=== PATIENT | male | born 1975 | race Caucasian/White ===

== ENCOUNTER → 2023-07-10 | Outpatient (CLI) | payer BC ==
[~2023-07-10] MED LIST: ABILIFY5 MG; ARIP15; ATOM18; CLON.1; DIAZ5; DIVA250EC PO; LAMICTAL200 MG; LAMO25 PO; LITH300C PO; OMEP40CA12; QUET25 PO; RANI150 PO; SERT50; TRAM50
== END ==
LOC: LAB SHORT 15:50 → LAB 15:50
DX: E29.1 Testicular hypofunction (principal)
CPT/HCPCS: 84403

== ENCOUNTER → 2024-04-21 | Outpatient (CLI) | payer BC, OTHER ==
[2024-04-21 16:36] LABS: BASOPHILS ABSOLUTE AUTO 0.03 K/mm3 (0.00-0.23); BASOPHILS PERCENT AUTO 0 % (0-2); EOSINOPHILS ABSOLUTE AUTO 0.12 K/mm3 (0.00-0.68); EOSINOPHILS PERCENT AUTO 2 % (0-6); Hematocrit 45.8 % (37.0-53.0); Hemoglobin 16.7 g/dL (13.5-17.5); IMMATURE GRAN ABSOLUTE AUTO 0.03 K/mm3 (0.00-0.10); IMMATURE GRAN PERCENT AUTO 0 % (0-1); LYMPHOCYTES ABSOLUTE AUTO 1.78 K/mm3 (0.84-5.20); LYMPHOCYTES PERCENT AUTO 22 % (21-46); MONOCYTES ABSOLUTE AUTO 0.55 K/mm3 (0.16-1.47); MONOCYTES PERCENT AUTO 7 % (4-13); Mean Corpuscular HGB 30.2 pg (26.0-34.0); Mean Corpuscular HGB Conc 36.5 g/dL (31.5-36.5); Mean Corpuscular Volume 83 fL (80-100); Mean Platelet Volume 10.1 fL (9.1-12.4); NEUTROPHILS ABSOLUTE AUTO 5.67 K/mm3 (1.96-9.15); NEUTROPHILS PERCENT AUTO 69 % (41-73); Platelet Count 205 K/mm3 (150-400); RDW Coefficient Variation 12.4 % (11.7-14.2); RDW Standard Deviation 37.5 fL (35.1-46.3); Red Blood Cell Count 5.53 M/mm3 (4.30-5.90); White Blood Cell Count 8.18 K/mm3 (4.00-11.30)
[2024-04-21 16:57] LABS: Albumin, Blood 4.4 g/dL (3.4-5.0); Albumin/Globulin Ratio 1.3 (0.8-1.8); Bilirubin, Total 0.8 mg/dL (0.1-1.0); Bun/Creatinine Ratio 9.6 (12.0-20.0); Calcium, Blood 9.4 mg/dL (8.5-10.1); Creatinine, Blood 1.15 mg/dL (0.60-1.20); Globulin, Blood 3.3 g/dL (2.2-4.0); Potassium, Blood 3.7 mmol/L (3.5-5.5); Thyroid Stimulating Hormone 2.3 uIU/mL (0.360-4.800); Total Protein, Blood 7.7 g/dL (6.4-8.2)
[2024-04-22 18:02] LABS: LAMOTRIGINE 6.6 ug/mL (3.0-15.0)
[2024-04-25 06:10] LABS: TESTOSTERONE, TOTAL MASS SPEC 419.2 ng/dL (300.0-890.0)
== END ==
LOC: LAB SHORT 14:48 → LAB 14:48
PROVIDERS: Internal Medicine
DX: E29.1 Testicular hypofunction (principal); F31.81 Bipolar II disorder; T50.905A Adverse effect of unspecified drugs, medicaments and biological substances, initial encounter
CPT/HCPCS: 80053; 80175; 84402; 84403; 84443; 85025

== ENCOUNTER 2024-10-17 15:22 | Observation (INO) | payer BC ==
[~2024-10-17] VITALS: Ht 188 cm; Wt 112.7 kg
[~2024-10-17 15:22] MED LIST changes: -ABILIFY5 MG; +ABILIFY5 MG PO; +BUPR150ER PO; +BUSP10 PO; -LAMICTAL200 MG; +LAMICTAL200 MG PO; +LOSA50 PO
[2024-10-17] MEDS ORDERED: FentaNYL Citrate 50 MCG/ML 2 ML Injection IV ONE (15:35)
[2024-10-17] MEDS ORDERED: NS 1,000 ML IV SCH ×2 (15:35→23:30)
[2024-10-17] MEDS ORDERED: Propofol 10mg/ml 20 ml Vial (Procedural) IV SCH (16:35)
[2024-10-17] MEDS ORDERED: Ketorolac Tromethamine 15mg Vial IV ONE (16:40)
[2024-10-17] MEDS ORDERED: Ondansetron HCl 2 MG / ML 2ML Vial IV PRN (18:00)
[2024-10-17] MEDS ORDERED: Albuterol 2.5 MG/3 ML VIAL INH PRN (18:00)
[2024-10-17] MEDS ORDERED: OxyCODONE 5 mg/Acetamin 325 mg TABLET PO PRN (18:05)
[2024-10-17] MEDS ORDERED: HydrALAZINE HCl 20 MG / ML 1ML Vial IV PRN (18:10)
[2024-10-17] MEDS ORDERED: FentaNYL Citrate 50 MCG/ML 2 ML Injection IV PRN (18:10)
[2024-10-17] MEDS ORDERED: Ketorolac Tromethamine 15mg Vial IV PRN (18:20)
[2024-10-17] MEDS ORDERED: HydrALAZINE HCl 20 MG / ML 1ML Vial IV ONE (19:00)
[2024-10-17 21:50] VITALS: BP 141/86
[2024-10-17] MEDS ORDERED: TRAZ50 PO (22:00)
[2024-10-18] VITALS (18 sets, daily range): BP systolic 106–156; BP diastolic 54–96
[2024-10-18] MEDS ORDERED: Tranexamic Acid 100 ML IV SCH ×3 (06:00→12:05)
[2024-10-18] MEDS ORDERED: CeFAZolin Sodium 2,000 MG in NS 100 ML IV SCH (06:00)
--- NOTE | 2024-10-18 06:34 | NUR ---
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 PT ARRIVED FROM ED WITH A SPLINT IN PLACE, PT REPORTS GOOD SENSATION TO RLE AND ABLE TO WIGGLE TOES AND GOOD CAP REFILL. AAOX4 AND PLEASANT. ABLE TO TURN PIVOT ON L FOOT WITH NO ISSUE. MEDICATED FOR PAIN X2, SEE MAR. PT HAS BEEN NPO SINCE MIDNIGHT IN PREP FOR SURGERY LATER TODAY. VSS, PEPE.
[2024-10-18] MEDS ORDERED: Dexamethasone Sod Phos 10 MG/ML 1ML VIAL ONE ×2 (12:02→16:00)
[2024-10-18] MEDS ORDERED: FentaNYL Citrate 50 MCG/ML 2 ML Injection ONE ×2 (12:03→17:08)
[2024-10-18] MEDS ORDERED: Midazolam HCl 1MG / ML 2ML Vial ONE (12:04)
[2024-10-18] MEDS ORDERED: Ropivacaine 0.5% HCL/PF 5 MG/ML 30ML Vial ONE (12:13)
[2024-10-18] MEDS ORDERED: Ondansetron HCl 2 MG / ML 2ML Vial IV PRN ×2 (12:35→13:55)
[2024-10-18] MEDS ORDERED: FentaNYL Citrate 50 MCG/ML 2 ML Injection IV PRN ×2 (12:35)
[2024-10-18] MEDS ORDERED: Albuterol 2.5 MG/3 ML VIAL INH PRN ×2 (12:35)
[2024-10-18] MEDS ORDERED: CeFAZolin Sodium 2,000 MG VIAL ONE (13:33)
[2024-10-18] MEDS ORDERED: Naloxone HCl 0.4MG / ML 1ML Vial IV PRN (13:50)
[2024-10-18] MEDS ORDERED: Magnesium Hydroxide Conc 10 ML UDC PO PRN (13:50)
[2024-10-18] MEDS ORDERED: HYDROmorphone HCl/Pf 1MG SYR IV PRN (13:55)
[2024-10-18] MEDS ORDERED: Ondansetron HCl 2 MG / ML 2ML Vial ONE (16:00)
--- NOTE | 2024-10-18 17:02 | NUR ---
BLOCK NOTE RIGHT POPLITEAL BLOCK AND R ADDUCTOR CANAL BLOCK PERFORMED PRIOR TO SURGERY. PT O2 SATURATION MONITORED AND STABLE THROUGHOUT PROCEDURE. TIME OUT PERFORMED AT 1441. PT, PROCEDURES, ALLERGIES AND PROVIDERS IDENTIFIED. ADDUCTOR CANAL BLOCK STARTED AT 1445, ENDED AT 1450. POPLITEAL BLOCK STARTED AT 1455, ENDED 1500. VSS. PT TOLERATIED WELL.
[2024-10-18] MEDS ORDERED: Ketorolac Tromethamine 30mg Vial ONE (17:13)
[2024-10-18] MEDS ORDERED: OXYC5 PO (17:13)
[2024-10-18] MEDS ORDERED: ASPI81CH PO (17:13)
--- NOTE | 2024-10-18 19:33 | NUR ---
SHIFT SUMMARY PT IS POD#0 FROM R ANKLE ORIF. PAIN MANAGED WITH PO PAIN MEDICATION. PT TOLERATING PO. BEDSIDE REPORT GIVEN TO MAXIMO PLAAZ.
--- NOTE | 2024-10-18 20:44 | NUR ---
ASSISTED PT WITH AMBULATION FOR FIRST TIME POST OP USING CRUTCHES. PT DID VERY WELL AND WAS STEADY. GOT ALL THE WAY INTO THE BATHROOM TO VOID. ASSISTED BACK TO BED WITH NO ISSUE. PT STILL REPORTS NUMBNESS TO RLE R/T BLOCK AND CANNOT YET WIGGLE HIS TOES BUT DOES HAVE SENSATION AT MID GRIFFIN AREA. PT AND HIS DISCUSSING HIM DC'ING TONIGHT BUT STATE THAT THEY WERE UNABLE TO FILL HIS PAIN MED SCRIPTS TONIGHT AND ONLY HAVE 2 PILLS LEFT FROM A PREVIOUS ISSUE AND ARE NERVOUS THAT WOULD NOT BE ENOUGH TO COVER HIM THROUGH THE NIGHT UNTIL SCRIPT CAN BE FILLED TOMORROW SO THEY ARE LEANING TOWARD HIM STAYING UNTIL TOMORROW.
[2024-10-19] MEDS ORDERED: CeFAZolin Sodium 2,000 MG in NS 100 ML IV SCH
[2024-10-19 03:55] VITALS: BP 151/93
[2024-10-19 04:57] LABS: Hematocrit 38.0 % (37.0-53.0); Hemoglobin 13.8 g/dL (13.5-17.5); Mean Corpuscular HGB Conc 36.3 g/dL (31.5-36.5); Mean Corpuscular Volume 84 fL (80-100); NRBC ABSOLUTE 0.00 K/mm3 (0.00-0.02); NRBC Auto 0.0 /100 WBC (0.0-0.2); Platelet Count 197 K/mm3 (150-400); RDW Coefficient Variation 12.3 % (11.7-14.2); RDW Standard Deviation 37.2 fL (35.1-46.3)
--- NOTE | 2024-10-19 05:06 | NUR ---
SCHEDULING ASSISTANT SUMMARY PT IS POD 0 FOR R ANKLE ORIF. NERVE BLOCKS HAVE STILL NOT WARN OFF YET. PT UNABLE TO WIGGLE TOES BUT DOES REPORT INCREASED SENSATION TO TOES AND ESPECIALLY ON TOP OF FOOT AND ANKLE. GOOD CAP REFILL TO TOES AND AREA IS WARM. PULSE PALPABLE ON TOP OF FOOT NEAR TOES. PT HAS NOT REQUIRED ANY PAIN MEDICATIONS YET TONIGHT. PT HAS BEEN UP A COUPLE TIMES TONIGHT AND DOES WELL AMBULATING WITH CRUTCHES. TOLERATING PO WITH NO ISSUE AND HAS VOIDED MULTIPLE TIMES. VSS, WCTM.
[2024-10-19 05:20] LABS: Anion Gap 8.0 mmol/L (3-11); Blood Urea Nitrogen 10.0 mg/dL (8-24); CO2, Blood 25.0 mmol/L (21-32); Calcium, Blood 8.4 mg/dL (8.5-10.1); Chloride, Blood 108.0 mmol/L (98-108); Creatinine, Blood 0.98 mg/dL (0.60-1.20); Glucose, Blood 130.0 mg/dL (70-99); Potassium, Blood 4.2 mmol/L (3.5-5.5); Sodium, Blood 137.0 mmol/L (136-145)
[2024-10-19 07:44] VITALS: BP 148/90
[2024-10-19] MEDS ORDERED: DOCU100 PO (11:03)
--- NOTE | 2024-10-19 11:27 | NUR ---
DISCHARGE NOTE THIS RN ASSUMED CARE AT APPROX 0715. PATIENT ALERT AND ORIENTED X4. COMMUNICATING NEEDS EFFECTIVELY. POD 1 R ORIF OF ANKLE. VSS. MANAGING PAIN PER EMAR W/ PRESCRIBED MEDICATION. RECEIVED NERVE BLOCK W/ PROCEDURE - REPORTS INCREASING SENSATION, UNABLE TO WIGGLE TOES. CAP REFILL <3 SECONDS. DENIES N/T. SHERIDAN WRAP SPLINT TO RLE C/D/I. PHYSICAL THERAPY EVAL COMPLETED THIS MORNING - AMBULATING W/ SBA PRN W/ CRUTCHES. GAITBELT PROVIDED FOR HOME USE PRN, FALL PREVENTION EDUCATION PROVIDED. WRITTEN AND VERBAL EDUCATION PROVIDED - PATIENT AND SIGNIFICANT OTHER STATE UNDERSTANDING. PERSONAL BELONGINGS WITH PATIENT. PATIENTs SIGNIFICANT OTHER TO TRANSFER PATIENT HOME.
== END 2024-10-19 11:33 | disposition home or self-care (01) ==
LOC: ER 15:22 → SURS 15:23 → ER 17:55 → ERHOLD 17:55 → SURS 17:55 → ERHOLD 21:45 → SURS 21:45
PROVIDERS: Internal Medicine; Orthopaedic Surgery; ADMIT Student in an Organized Health Care Education/Training Program
PROC: 0QSG04Z Reposition Right Tibia with Internal Fixation Device, Open Approach (ICD-10-PCS; principal; 2024-10-18 14:30)
DX: S82.861A Displaced Maisonneuve's fracture of right leg, initial encounter for closed fracture (principal); S82.51XA Displaced fracture of medial malleolus of right tibia, initial encounter for closed fracture; X50.1XXA Overexertion from prolonged static or awkward postures, initial encounter; F31.9 Bipolar disorder, unspecified; I16.0 Hypertensive urgency; F41.9 Anxiety disorder, unspecified; I10 Essential (primary) hypertension; J45.20 Mild intermittent asthma, uncomplicated; Z88.5 Allergy status to narcotic agent; Z79.899 Other long term (current) drug therapy
CPT/HCPCS: 27762; 36415; 73590; 73610; 73700; 80048; 85027; 94760; 96374; 96375; 96376; 97110; 97112; 97161; 99285-25; A9270; C1713; C1769; C1776; G0378; J0360; J0690; J1100; J1885; J2250; J2405; J2704; J2795; J3010; J7030; J7120